=== PATIENT | male | born 1945 | race Hispanic/Latino ===

== ENCOUNTER → 2022-08-16 | Outpatient (CLI) | payer OTHER | END | disposition home or self-care (01) | LOC: SHCH 07:51 | PROVIDERS: ATTEND Internal Medicine Cardiovascular Disease | DX: I08.3 Combined rheumatic disorders of mitral, aortic and tricuspid valves (principal); I27.20 Pulmonary hypertension, unspecified; I42.0 Dilated cardiomyopathy; I11.9 Hypertensive heart disease without heart failure | CPT/HCPCS: 93306 ==

== ENCOUNTER 2022-09-25 07:38 | Observation (INO) | payer OTHER ==
[2022-09-22 09:29] LABS: BASOPHILS % (AUTO) 1.1 % (0.0-5.0); EOSINOPHILS % (AUTO) 4.2 % (0.0-8.0); HEMATOCRIT 44.1 % (42-54); LYMPHOCYTES % (AUTO) 23.4 % (21.0-51.0); MEAN CORPUSCULAR HEMOGLOBIN 27.8 pg (27.0-33.0); MEAN CORPUSCULAR HGB CONC 32.7 g/dL (32.0-36.0); MEAN CORPUSCULAR VOLUME 85.1 fL (79-99); MONOCYTES % (AUTO) 8.4 % (3.0-13.0); NEUTROPHILS % (AUTO) 62.5 % (40.0-77.0); PLATELET COUNT (AUTO) 224 K/uL (130-400); RED BLOOD CELL COUNT(AUTO) 5.18 MIL/uL (4.50-6.20); RED CELL DISTRIBUTION WIDTH 18.9 % (11.0-15.5); WHITE BLOOD COUNT (AUTO) 7.1 K/uL (4.8-10.8)
[2022-09-22 09:32] LABS: CREATININE 2.1 mg/dL (0.5-1.5); POTASSIUM 3.8 mmol/L (3.5-5.1)
[2022-09-22 09:48] LABS: INR 1.51 (0.85-1.15); PROTHROMBIN TIME 16.1 SEC (9.6-11.6)
[2022-09-22 09:49] LABS: PARTIAL THROMBOPLASTIN TIME 31.7 SEC (26.3-35.5)
[2022-09-22 11:35] VITALS: BP 114/72
[2022-09-25] VITALS (25 sets, daily range): BP systolic 105–140; BP diastolic 73–102
[~2022-09-25] VITALS: Ht 167.6 cm; Wt 79.3 kg
[~2022-09-25 07:38] MED LIST: 0.9%NACL 1000ML 1,000 ML IV SCH; APIX5TAB PO; FURO40TA5 PO; IRON150C5 PO; ISOS20TA85 PO; METO-391 PO; SACU1TAB PO; SUPER B COMPLEX PO
[2022-09-25] MEDS ORDERED: NALOXONE HCL 0.4 MG/1 ML ML ONE (09:39)
[2022-09-25] MEDS ORDERED: LIDOCAINE HCL 2% VISCOUS 15 ML UDCUP ONE (09:39)
[2022-09-25] MEDS ORDERED: FLUMAZENIL 0.1MG/1ML 5ML VIAL IV ONE (09:39)
[2022-09-25] MEDS ORDERED: FENTANYL CITRATE PF 50 MCG/1 ML 2ML VIAL ONE (09:40)
[2022-09-25] MEDS ORDERED: MIDAZOLAM HCL 1 MG/ML 2ML VIAL ONE (09:41)
[2022-09-25] MEDS ORDERED: AMIODARONE 150MG VIAL 150 MG in DEXTROSE 5%-WATER 100 ML IV SCH (12:30)
[2022-09-25] MEDS ORDERED: AMIODARONE 360MG/200ML D5W(1MG/MIN) IV SCH ×2 (12:30)
[2022-09-26 00:21] VITALS: BP_SYST 110; BP_SYST 125; BP_DIAS 68; BP_DIAS 98
[2022-09-26 03:21] VITALS: BP 92/69
[2022-09-26 03:43] LABS: EOSINOPHILS % (AUTO) 3.6 % (0.0-8.0); HEMATOCRIT 38.9 % (42-54); LYMPHOCYTES % (AUTO) 25.7 % (21.0-51.0); MEAN CORPUSCULAR HEMOGLOBIN 27.6 pg (27.0-33.0); MEAN CORPUSCULAR HGB CONC 32.4 g/dL (32.0-36.0); MEAN CORPUSCULAR VOLUME 85.3 fL (79-99); MONOCYTES % (AUTO) 8.4 % (3.0-13.0); NEUTROPHILS % (AUTO) 60.9 % (40.0-77.0); PLATELET COUNT (AUTO) 197 K/uL (130-400); RED BLOOD CELL COUNT(AUTO) 4.56 MIL/uL (4.50-6.20); RED CELL DISTRIBUTION WIDTH 18.4 % (11.0-15.5); WHITE BLOOD COUNT (AUTO) 6.9 K/uL (4.8-10.8)
[2022-09-26 04:08] LABS: ALBUMIN 2.9 g/dL (3.5-5.0); CREATININE 1.8 mg/dL (0.5-1.5); MAGNESIUM 2.3 mg/dL (1.80-2.40); POTASSIUM 3.9 mmol/L (3.5-5.1); THYROID STIMULATING HORMONE 4.15 uIU/mL (0.36-3.74)
[2022-09-26 08:00] VITALS: BP 97/65
[2022-09-26] MEDS: AMIODARONE 540 MG/D5W 300ML (0.5MG/MIN) IV SCH ×2 (08:24)
[2022-09-26] MEDS ORDERED: FUROSEMIDE 40 MG TABLET PO PRN (09:30)
[2022-09-26] MEDS: ISOSORBIDE MONONITRATE 20 MG TABLET PO SCH ×2 (09:45→20:27)
[2022-09-26] MEDS: APIXABAN 5 MG TABLET PO SCH ×2 (10:11→20:27)
[2022-09-26] MEDS: SACUBITRIL/VALSARTAN 1 EACH TABLET PO SCH ×2 (10:11→20:27)
[2022-09-26] MEDS: IRON POLYSACCHARIDES COMPLEX 150 MG CAPSULE PO SCH ×2 (10:11→18:16)
[2022-09-26 12:00] VITALS: BP 122/83
[2022-09-26 16:00] VITALS: BP 125/77
[2022-09-26 19:21] VITALS: BP 128/88
[2022-09-27 00:21] VITALS: BP 125/98
[2022-09-27] MEDS: AMIODARONE 540 MG/D5W 300ML (0.5MG/MIN) IV SCH ×2 (00:34)
[2022-09-27 03:21] VITALS: BP 128/90
[2022-09-27 08:18] VITALS: BP 140/89
[2022-09-27] MEDS ORDERED: AMIODARONE 200 MG TABLET PO SCH (09:30)
[2022-09-27] MEDS ORDERED: AMIO200T68 PO (09:35)
[2022-09-27] MEDS: ISOSORBIDE MONONITRATE 20 MG TABLET PO SCH (10:28)
[2022-09-27] MEDS: SACUBITRIL/VALSARTAN 1 EACH TABLET PO SCH (10:28)
[2022-09-27] MEDS: IRON POLYSACCHARIDES COMPLEX 150 MG CAPSULE PO SCH (10:28)
[2022-09-27] MEDS: APIXABAN 5 MG TABLET PO SCH (10:28)
[2022-09-27 11:41] VITALS: BP 127/62
== END 2022-09-27 13:45 | disposition home or self-care (01) ==
LOC: DAH 07:38 → DAHIP 07:39 → 2AH 13:43
PROVIDERS: ADMIT Internal Medicine Cardiovascular Disease; ATTEND Internal Medicine Cardiovascular Disease
DX: I48.19 Other persistent atrial fibrillation (principal); I13.0 Hypertensive heart and chronic kidney disease with heart failure and stage 1 through stage 4 chronic kidney disease, or unspecified chronic kidney disease; I50.22 Chronic systolic (congestive) heart failure; N18.9 Chronic kidney disease, unspecified; I25.10 Atherosclerotic heart disease of native coronary artery without angina pectoris; Z88.0 Allergy status to penicillin; Z79.899 Other long term (current) drug therapy
CPT/HCPCS: 80048; 85025 ×2; 85610; 85730; 36415 ×2; 93312; 96365; 96366 ×2; 84443; 83735; 80053; 71045; 92960; G0378 ×48; J3010; J7030; J2250; J7060 ×4; J0282 ×4; A4215; A4223 ×3; A4222; A4221; A4663; A4216; A4606; 96374; 99152; J2310; J3490

== ENCOUNTER → 2022-11-08 | Outpatient (CLI) | payer OTHER ==
[~2022-11-08] MED LIST changes: -0.9%NACL 1000ML 1,000 ML IV SCH; +AMIO200T68 PO
== END | disposition home or self-care (01) ==
LOC: SHCH 08:31
PROVIDERS: ATTEND Internal Medicine Cardiovascular Disease
DX: I42.0 Dilated cardiomyopathy (principal)
CPT/HCPCS: 93306

== ENCOUNTER 2023-01-08 07:00 | Day surgery (SDC) | payer OTHER ==
[2023-01-03 14:30] LABS: BASOPHILS % (AUTO) 0.8 % (0.0-5.0); EOSINOPHILS % (AUTO) 5.9 % (0.0-8.0); HEMATOCRIT 41.6 % (42-54); LYMPHOCYTES % (AUTO) 25.3 % (21.0-51.0); MEAN CORPUSCULAR HEMOGLOBIN 29.2 pg (27.0-33.0); MEAN CORPUSCULAR HGB CONC 33.4 g/dL (32.0-36.0); MEAN CORPUSCULAR VOLUME 87.4 fL (79-99); MONOCYTES % (AUTO) 10.5 % (3.0-13.0); NEUTROPHILS % (AUTO) 57.2 % (40.0-77.0); PLATELET COUNT (AUTO) 236 K/uL (130-400); RED BLOOD CELL COUNT(AUTO) 4.76 MIL/uL (4.50-6.20); RED CELL DISTRIBUTION WIDTH 15.7 % (11.0-15.5); WHITE BLOOD COUNT (AUTO) 7.2 K/uL (4.8-10.8)
[2023-01-03 14:31] VITALS: BP 134/61
[2023-01-03 15:19] LABS: CREATININE 1.3 mg/dL (0.5-1.5); POTASSIUM 4.5 mmol/L (3.5-5.1)
[~2023-01-08] VITALS: Ht 167.6 cm; Wt 74.0 kg
[2023-01-08] VITALS (17 sets, daily range): BP systolic 125–176; BP diastolic 63–99
[2023-01-08 07:28] LABS: INR 0.99 (0.85-1.15); PROTHROMBIN TIME 10.8 SEC (9.6-11.6)
[2023-01-08 07:29] LABS: PARTIAL THROMBOPLASTIN TIME 27.1 SEC (26.3-35.5)
[2023-01-08] MEDS ORDERED: CLINDAMYCIN IVPB 900MG/50ML 50 ML IV ONE (07:33)
[2023-01-08] MEDS ORDERED: LACTATED RINGERS 1000ML 1,000 ML IV ONE (07:33)
[2023-01-08] MEDS ORDERED: MIDAZOLAM HCL 1 MG/ML 2ML VIAL ONE (08:04)
[2023-01-08] MEDS ORDERED: LIDOCAINE PF 100MG/5ML (2%) SYRINGE 5ML ONE (08:04)
[2023-01-08] MEDS ORDERED: PROPOFOL 10 MG/ML 20ML VIAL IV ONE (08:04)
[2023-01-08] MEDS ORDERED: FENTANYL CITRATE PF 50 MCG/1 ML 2ML VIAL ONE ×2 (08:05→10:38)
[2023-01-08] MEDS ORDERED: ROCURONIUM 10MG/1ML SYR 10 MG/ML ML ONE (08:05)
[2023-01-08] MEDS ORDERED: ROPIVACAINE 0.5% 5MG/ML 30ML IJ ONE (08:07)
[2023-01-08] MEDS ORDERED: DEXAMETHASONE SOD PHOSPHATE 4 MG/ML 1ML VIAL ONE (08:10)
[2023-01-08] MEDS ORDERED: EPHEDRINE SULFATE 50 MG/ML AMPULE ONE (09:28)
[2023-01-08] MEDS ORDERED: ONDANSETRON 4MG INJ ONE (09:30)
[2023-01-08] MEDS ORDERED: NEOSTIGMINE 5MG/5ML SYR IV ONE (10:15)
[2023-01-08] MEDS ORDERED: GLYCOPYRROLATE 1 MG/5 ML SYRINGE ONE (10:15)
[2023-01-08] MEDS ORDERED: MEPERIDINE-PF 25 MG/ML SYG ONE (11:17)
== END 2023-01-08 13:10 | disposition home or self-care (01) ==
LOC: DAH 07:00
PROVIDERS: ATTEND Surgery
DX: K40.90 Unilateral inguinal hernia, without obstruction or gangrene, not specified as recurrent (principal); Z20.822 Contact with and (suspected) exposure to COVID-19; I10 Essential (primary) hypertension; I25.10 Atherosclerotic heart disease of native coronary artery without angina pectoris; E78.00 Pure hypercholesterolemia, unspecified; Z98.890 Other specified postprocedural states; Z90.49 Acquired absence of other specified parts of digestive tract; Z88.0 Allergy status to penicillin; Z79.01 Long term (current) use of anticoagulants
CPT/HCPCS: 80048; 85025; 87426; 36415 ×2; 71045; 64486; 49505; 85610; 85730; 82948; 93005; A6260; J1100; A4663; J7030; A4452; A4649; J7120; J3010 ×2; J3490 ×3; J2710; J2001; J2250; J2704; J2405; J2175; J2795; G0168; C1781; A4215; A4223; A4222; A4221

== ENCOUNTER → 2023-07-27 | Outpatient (CLI) | payer OTHER ==
[~2023-07-27] MED LIST changes: -AMIO200T68 PO; -FURO40TA5 PO; -IRON150C5 PO; -ISOS20TA85 PO; +REGADENOSON 0.4 MG/5 ML PF SYG IVP ONE; +REGADENOSON 0.4 MG/5 ML PF SYG IVP SCH; -SACU1TAB PO; -SUPER B COMPLEX PO
== END | disposition home or self-care (01) ==
LOC: SHCH 07:48
PROVIDERS: ATTEND Internal Medicine Cardiovascular Disease
DX: I48.0 Paroxysmal atrial fibrillation (principal); I25.810 Atherosclerosis of coronary artery bypass graft(s) without angina pectoris; R94.39 Abnormal result of other cardiovascular function study
CPT/HCPCS: 78452; 93017; J2785; A9500 ×2; 96374